=== PATIENT | female | born 1955 | race Caucasian/White ===

== ENCOUNTER 2016-06-14 16:25 | Emergency (ER) | payer OTHER ==
[~2016-06-14] VITALS: Ht 160 cm; Wt 95.8 kg
[~2016-06-14 16:25] MED LIST: ACIPHEX20 MG PO; AZOR 10/20 M1 TABLET PO; AZOR 10/40 M1 TABLET PO; AZOR 5/40 MG1 TABLET PO; Augmentin PO; CLEOCIN300 MG PO; DEMADEX20 MG PO; FENOFIBRATE160 M1 PO; FLEXERIL10 MG PO; Flexeril PO; HYDROCODON-ACE1 EAC7 PO; INVOKANA100 MG PO; JANUMET XR 50-1 EAC1 PO; LEVAQUIN250 MG PO; LEVAQUIN500 MG PO; LEVOTHYROXINE175 MCG PO; LIPITOR40 MG PO; Levothroid,Synthroid PO; MYCOSTATIN 100,60 ML PO; Mycostatin PO; PERCOCET; PERCOCET 10/1 TABLE1 PO; PERCOCET 10/1 TABLET PO; PERCOCET 5/31 TABLET PO; PROAIR HFA8.5 GM IH; PROVENTIL,200 INHALA IH; Protonix PO; SYNTHROID150 MCG PO; SYNTHROID175 MCG PO; SYNTHROID300 MCG PO; TORSEMIDE20 MG PO; TYLENOL REGULA325 MG PO; ZOFRAN4 MG PO; predniSONE PO
[2016-06-14 19:15] VITALS: BP 185/90
== END 2016-06-14 19:19 | disposition home or self-care (01) ==
LOC: EME 16:25
DX: M77.8 Other enthesopathies, not elsewhere classified (principal); G89.29 Other chronic pain; Z87.891 Personal history of nicotine dependence
CPT/HCPCS: 73110; 99281; 99284

== ENCOUNTER 2016-06-30 08:32 | Emergency (ER) | payer OTHER ==
[~2016-06-30] VITALS: Ht 157.5 cm; Wt 93.4 kg
[2016-06-30 09:18] LABS: HEMATOCRIT 44.4 % (36.0-46.0); MCH 29.7 PG (29.0-34.0); MCV 87.4 FL (83-99); MEAN PLAT.VOLUME 10.1 uM^3 (9.5-12.4); PLATELET COUNT 234 K/uL (156-360); RBC DIS.WIDTH-CV 12.9 % (11.8-14.6); RBC DIS.WIDTH-SD 40.4 % (39-53); RED BLOOD COUNT 5.08 M/uL (3.80-5.20); WHITE BLOOD COUNT 9.6 K/uL (4.1-10.2)
[2016-06-30 09:39] LABS: TROP-I INTERPRETATION NEGATIVE; TROPONIN-I 0.01 ng/mL (0.0-0.30)
[2016-06-30 09:50] LABS: ANION GAP 8 MEQ/L (2-14); CHLORIDE 104 MEQ/L (99-109); GFR ESTIMATE (CALCULATED) > 59 mL/min/; GLUCOSE 163 mg/dL (70-99); SAMPLE HEMOLYSIS CHECK 0; SAMPLE ICTERIC CHECK 0; SAMPLE LIPEMIA CHECK 0; SODIUM 139 MEQ/L (136-147); UREA NITROGEN (BUN) 9 mg/dL (9-23)
[2016-06-30] MEDS ORDERED: BYSTOLIC5 MG PO (09:50)
[2016-06-30] MEDS ORDERED: METOCLOPRAMIDE10 MG PO (09:51)
[2016-06-30] MEDS ORDERED: FARXIGA5 MG PO (09:53)
[2016-06-30] MEDS ORDERED: PROVENTIL HFA6.7 GM IH (10:17)
[2016-06-30] MEDS ORDERED: PREDNISONE20 MG PO (10:17)
[2016-06-30] MEDS ORDERED: ZITHROMAX Z-PA250 MG PO (10:17)
[2016-06-30 10:30] VITALS: BP 159/103
== END 2016-06-30 10:31 | disposition home or self-care (01) ==
LOC: EME 08:32
PROVIDERS: Emergency Medicine
DX: J20.9 Acute bronchitis, unspecified (principal); I10 Essential (primary) hypertension; M10.9 Gout, unspecified; Z87.442 Personal history of urinary calculi; K21.9 Gastro-esophageal reflux disease without esophagitis; E03.9 Hypothyroidism, unspecified; Z98.1 Arthrodesis status; Z87.891 Personal history of nicotine dependence; Z88.1 Allergy status to other antibiotic agents; Z88.2 Allergy status to sulfonamides
CPT/HCPCS: 71020; 80048; 84484; 85027; 93005; 94640; 99281; 99284; J7512

== ENCOUNTER 2016-12-20 12:39 | Emergency (ER) | payer OTHER ==
[~2016-12-20] VITALS: Ht 157.5 cm; Wt 97.6 kg
[~2016-12-20 12:39] MED LIST changes: +BYSTOLIC5 MG PO; +FARXIGA5 MG PO; +METOCLOPRAMIDE10 MG PO; +PREDNISONE20 MG PO; +PROVENTIL HFA6.7 GM IH; +ZITHROMAX Z-PA250 MG PO
[2016-12-20] MEDS ORDERED: LEVOTHYROXINE175 MCG PO (13:18)
[2016-12-20] MEDS ORDERED: OXYCODONE HCL15 MG PO (13:18)
[2016-12-20] MEDS ORDERED: ATORVASTATIN CA40 MG PO (13:19)
[2016-12-20] MEDS ORDERED: BYSTOLIC5 MG PO (13:20)
[2016-12-20] MEDS ORDERED: JANUMET 50/51 TABLET PO (13:21)
[2016-12-20 14:41] LABS: HEMATOCRIT 43.3 % (36.0-46.0); MCH 30.6 PG (29.0-34.0); MCHC 33.9 G/DL (30.0-36.0); MCV 90.2 FL (83-99); PLATELET COUNT 254 K/uL (156-360); RBC DIS.WIDTH-CV 12.6 % (11.8-14.6); RBC DIS.WIDTH-SD 41.7 % (39-53); WHITE BLOOD COUNT 9.7 K/uL (4.1-10.2)
[2016-12-20 14:53] LABS: CHLORIDE 107 mEq/L (99-109); POTASSIUM 4.8 mEq/L (3.7-5.4); SODIUM 143 mEq/L (136-147)
[2016-12-20 14:54] LABS: GLUCOSE 158 mg/dL (70-99)
[2016-12-20 14:56] LABS: ANION GAP 8 MEQ/L (2-14)
[2016-12-20 14:58] LABS: GFR ESTIMATE (CALCULATED) > 59 mL/min/
[2016-12-20 14:59] LABS: UREA NITROGEN (BUN) 14 mg/dL (9-23)
[2016-12-20 15:01] LABS: TROP-I INTERPRETATION NEGATIVE; TROPONIN-I < 0.01 ng/mL (0.0-0.30)
[2016-12-20] MEDS ORDERED: ANTIVERT25 MG PO (18:17)
[2016-12-20 18:40] VITALS: BP 230/99
== END 2016-12-20 19:09 | disposition home or self-care (01) ==
LOC: EME 12:39
PROVIDERS: Physician Assistant
DX: R42 Dizziness and giddiness (principal); I10 Essential (primary) hypertension; Z88.2 Allergy status to sulfonamides; Z88.1 Allergy status to other antibiotic agents
CPT/HCPCS: 70450; 70486; 80048; 84484; 85027; 93005; 99281; 99285; J7030

== ENCOUNTER 2016-12-28 11:28 | Emergency (ER) | payer OTHER ==
[~2016-12-28] VITALS: Ht 157.5 cm; Wt 96.6 kg
[~2016-12-28 11:28] MED LIST changes: +ANTIVERT25 MG PO; +ATORVASTATIN CA40 MG PO; +JANUMET 50/51 TABLET PO; +OXYCODONE HCL15 MG PO
[2016-12-28] MEDS ORDERED: UNITHROID175 MCG PO (12:06)
[2016-12-28 14:45] LABS: HEMATOCRIT 46.5 % (36.0-46.0); MCH 30.1 PG (29.0-34.0); MCHC 34.6 G/DL (30.0-36.0); MCV 87.1 FL (83-99); MEAN PLAT.VOLUME 10.3 uM^3 (9.5-12.4); PLATELET COUNT 284 K/uL (156-360); RBC DIS.WIDTH-CV 12.4 % (11.8-14.6); RBC DIS.WIDTH-SD 39.4 % (39-53); RED BLOOD COUNT 5.34 M/uL (3.80-5.20); WHITE BLOOD COUNT 11.8 K/uL (4.1-10.2)
[2016-12-28 15:01] LABS: CHLORIDE 106 mEq/L (99-109); POTASSIUM 4.3 mEq/L (3.7-5.4); SODIUM 140 mEq/L (136-147)
[2016-12-28 15:02] LABS: GLUCOSE 131 mg/dL (70-99)
[2016-12-28 15:04] LABS: ANION GAP 11 MEQ/L (2-14)
[2016-12-28 15:06] LABS: GFR ESTIMATE (CALCULATED) > 59 mL/min/
[2016-12-28 15:07] LABS: UREA NITROGEN (BUN) 11 mg/dL (9-23)
[2016-12-28] MEDS ORDERED: PEN-VEE K,VEET500 MG PO (16:32)
[2016-12-28] MEDS ORDERED: [UNRECOGNIZED DRUG - OTHER] PO (16:32)
[2016-12-28] MEDS ORDERED: LISINOPRIL-HCT1 EAC3 PO (16:32)
[2016-12-28] MEDS ORDERED: COREG6.25 M1 PO (16:32)
[2016-12-28 16:58] VITALS: BP 188/109
== END 2016-12-28 17:01 | disposition home or self-care (01) ==
LOC: EME 11:28
PROVIDERS: Nurse Practitioner Family
DX: I10 Essential (primary) hypertension (principal); R42 Dizziness and giddiness; K04.7 Periapical abscess without sinus; K21.9 Gastro-esophageal reflux disease without esophagitis; E03.9 Hypothyroidism, unspecified; Z87.891 Personal history of nicotine dependence; Z87.442 Personal history of urinary calculi
CPT/HCPCS: 80048; 85027; 99281; 99284; J1885; J7030

== ENCOUNTER 2017-05-02 19:42 | Emergency (ER) | payer OTHER ==
[~2017-05-02] VITALS: Ht 157.5 cm; Wt 97.7 kg
[~2017-05-02 19:42] MED LIST changes: +COREG6.25 M1 PO; +LISINOPRIL-HCT1 EAC3 PO; +PEN-VEE K,VEET500 MG PO; +UNITHROID175 MCG PO; +[UNRECOGNIZED DRUG - OTHER] PO
[2017-05-02 21:11] LABS: HEMATOCRIT 43.3 % (36.0-46.0); MCHC 35.6 G/DL (30.0-36.0); MCV 87.3 FL (83-99); MEAN PLAT.VOLUME 10.2 uM^3 (9.5-12.4); PLATELET COUNT 288 K/uL (156-360); RBC DIS.WIDTH-CV 12.2 % (11.8-14.6); RBC DIS.WIDTH-SD 38.9 % (39-53); RED BLOOD COUNT 4.96 M/uL (3.80-5.20); WHITE BLOOD COUNT 12.3 K/uL (4.1-10.2)
[2017-05-02 21:21] LABS: CHLORIDE 107 mEq/L (99-109); POTASSIUM 4.1 mEq/L (3.7-5.4); SODIUM 142 mEq/L (136-147)
[2017-05-02 21:24] LABS: GLUCOSE 170 mg/dL (70-99)
[2017-05-02 21:25] LABS: ANION GAP 11 MEQ/L (2-14)
[2017-05-02 21:26] LABS: TOTAL BILIRUBIN 0.6 mg/dL (0.0-1.0)
[2017-05-02 21:27] LABS: ALKALINE PHOSPHATASE 132 IU/L (3-129); GFR ESTIMATE (CALCULATED) > 59 mL/min/
[2017-05-02 21:28] LABS: UREA NITROGEN (BUN) 14 mg/dL (9-23)
[2017-05-02 21:36] LABS: ADD MIUA? YES; BILIRUBIN NEGATIVE; BLOOD SMALL; COLOR YELLOW ((YELLOW)); GLUCOSE (STRIP) NEGATIVE; KETONES NEGATIVE; LEUKOCYTES TRACE; NITRITE NEGATIVE; PROTEIN (STRIP) NEGATIVE; SPECIFIC GRAVITY 1.014 (1.000-1.030); UROBILINOGEN 0.2 MG/DL (0.2-1.0)
[2017-05-02 21:42] LABS: BACTERIA NONE SEEN /HPF; EPITHELIAL CELLS 1+ /HPF; MUCUS NONE SEEN /LPF; RED BLOOD CELLS 0-5 /HPF (0-5); UCUL ADDED? NO; WHITE BLOOD CELLS 0-5 /HPF (0-5)
[2017-05-02] MEDS ORDERED: PERCOCET 5/31 TABLET PO (22:41)
[2017-05-02 23:08] VITALS: BP 205/71
== END 2017-05-02 23:03 | disposition home or self-care (01) ==
LOC: EME 19:42
PROVIDERS: Physician Assistant
DX: R10.31 Right lower quadrant pain (principal); M54.9 Dorsalgia, unspecified; Z87.442 Personal history of urinary calculi; R91.1 Solitary pulmonary nodule; N28.1 Cyst of kidney, acquired; I25.10 Atherosclerotic heart disease of native coronary artery without angina pectoris; Z90.49 Acquired absence of other specified parts of digestive tract; Z90.711 Acquired absence of uterus with remaining cervical stump; I10 Essential (primary) hypertension; E03.9 Hypothyroidism, unspecified; Z79.84 Long term (current) use of oral hypoglycemic drugs; Z87.891 Personal history of nicotine dependence
CPT/HCPCS: 74176; 80053; 81003; 85027; 99281; 99284

== ENCOUNTER 2017-07-31 20:07 | Emergency (ER) | payer OTHER ==
[~2017-07-31] VITALS: Ht 157.5 cm; Wt 95.4 kg
[2017-07-31 21:16] LABS: HEMATOCRIT 44.3 % (36.0-46.0); HEMOGLOBIN 15.2 G/DL (11.9-15.5); MCH 30.6 PG (29.0-34.0); MCHC 34.3 G/DL (30.0-36.0); MCV 89.1 FL (83-99); PLATELET COUNT 276 K/uL (156-360); RBC DIS.WIDTH-CV 12.4 % (11.8-14.6); RBC DIS.WIDTH-SD 40.6 % (39-53); RED BLOOD COUNT 4.97 M/uL (3.80-5.20); WHITE BLOOD COUNT 6.7 K/uL (4.1-10.2)
[2017-07-31 21:34] LABS: CHLORIDE 109 mEq/L (99-109); POTASSIUM 4.2 mEq/L (3.7-5.4); SODIUM 142 mEq/L (136-147)
[2017-07-31 21:35] LABS: GLUCOSE 169 mg/dL (70-99)
[2017-07-31 21:39] LABS: CREATININE 0.9 mg/dL (0.6-1.3); GFR ESTIMATE (CALCULATED) > 59 mL/min/
[2017-07-31 21:40] LABS: UREA NITROGEN (BUN) 13 mg/dL (9-23)
[2017-07-31 23:14] LABS: APPEARANCE CLEAR ((CLEAR)); BILIRUBIN NEGATIVE; BLOOD SMALL; COLOR YELLOW ((YELLOW)); GLUCOSE (STRIP) NEGATIVE; KETONES NEGATIVE; LEUKOCYTES TRACE; NITRITE NEGATIVE; PROTEIN (STRIP) NEGATIVE; SPECIFIC GRAVITY 1.019 (1.000-1.030); UROBILINOGEN 0.2 MG/DL (0.2-1.0)
[2017-07-31 23:29] LABS: BACTERIA NONE SEEN /HPF; EPITHELIAL CELLS 1+ /HPF; MUCUS NONE SEEN /LPF; RED BLOOD CELLS 0-5 /HPF (0-5); UCUL ADDED? NO; WHITE BLOOD CELLS 0-5 /HPF (0-5)
[2017-08-01] MEDS ORDERED: TESSALON PERLE100 MG PO (00:29)
[2017-08-01] MEDS ORDERED: TAMIFLU75 MG PO (00:29)
[2017-08-01] MEDS ORDERED: PREDNISONE20 MG PO (00:29)
[2017-08-01] MEDS ORDERED: VENTOLIN HFA18 GM IH (00:30)
[2017-08-01 00:49] VITALS: BP 215/87
== END 2017-08-01 00:49 | disposition home or self-care (01) ==
LOC: EME 20:07
PROVIDERS: Physician Assistant
DX: J10.1 Influenza due to other identified influenza virus with other respiratory manifestations (principal); I10 Essential (primary) hypertension; E66.01 Morbid (severe) obesity due to excess calories; Z68.38 Body mass index [BMI] 38.0-38.9, adult; Z53.29 Procedure and treatment not carried out because of patient's decision for other reasons; Z87.891 Personal history of nicotine dependence; E03.9 Hypothyroidism, unspecified; Z87.442 Personal history of urinary calculi; K21.9 Gastro-esophageal reflux disease without esophagitis; Z88.2 Allergy status to sulfonamides
CPT/HCPCS: 71046; 80048; 81003; 85027; 87502; 99281; 99284; J7512

== ENCOUNTER 2017-10-06 13:35 | Emergency (ER) | payer OTHER ==
[~2017-10-06] VITALS: Ht 157.5 cm; Wt 94.3 kg
[~2017-10-06 13:35] MED LIST changes: +TAMIFLU75 MG PO; +TESSALON PERLE100 MG PO; +VENTOLIN HFA18 GM IH
[2017-10-06 14:26] LABS: HEMATOCRIT 42.2 % (36.0-46.0); HEMOGLOBIN 14.9 G/DL (11.9-15.5); MCH 30.7 PG (29.0-34.0); MCHC 35.3 G/DL (30.0-36.0); MCV 86.8 FL (83-99); PLATELET COUNT 278 K/uL (156-360); RBC DIS.WIDTH-CV 12.2 % (11.8-14.6); RBC DIS.WIDTH-SD 38.6 % (39-53); RED BLOOD COUNT 4.86 M/uL (3.80-5.20); WHITE BLOOD COUNT 9.4 K/uL (4.1-10.2)
[2017-10-06 14:37] LABS: CHLORIDE 105 mEq/L (99-109); POTASSIUM 4.2 mEq/L (3.7-5.4); SODIUM 139 mEq/L (136-147)
[2017-10-06 14:39] LABS: GLUCOSE 221 mg/dL (70-99)
[2017-10-06 14:43] LABS: CREATININE 0.8 mg/dL (0.6-1.3); GFR ESTIMATE (CALCULATED) > 59 mL/min/
[2017-10-06 14:44] LABS: UREA NITROGEN (BUN) 13 mg/dL (9-23)
[2017-10-06 14:47] LABS: TROP-I INTERPRETATION NEGATIVE; TROPONIN-I 0.02 ng/mL (0.0-0.30)
[2017-10-06] MEDS ORDERED: NAPROSYN500 MG PO (17:36)
[2017-10-06] MEDS ORDERED: VALIUM2 MG PO (17:36)
[2017-10-06 18:09] LABS: TROP-I INTERPRETATION NEGATIVE; TROPONIN-I 0.01 ng/mL (0.0-0.30)
[2017-10-06 18:43] VITALS: BP 216/82
== END 2017-10-06 18:44 | disposition home or self-care (01) ==
LOC: EME 13:35
PROVIDERS: Nurse Practitioner Acute Care
DX: M54.2 Cervicalgia (principal); I10 Essential (primary) hypertension; M62.838 Other muscle spasm; R07.9 Chest pain, unspecified; M54.9 Dorsalgia, unspecified; K21.9 Gastro-esophageal reflux disease without esophagitis; Z87.442 Personal history of urinary calculi; Z87.891 Personal history of nicotine dependence; Z88.2 Allergy status to sulfonamides; Z98.1 Arthrodesis status; Z79.84 Long term (current) use of oral hypoglycemic drugs; Z79.891 Long term (current) use of opiate analgesic
CPT/HCPCS: 71046; 72040; 80048; 84484; 85027; 93005; 99281; 99284

== ENCOUNTER 2017-11-26 14:40 | Emergency (ER) | payer OTHER ==
[~2017-11-26] VITALS: Ht 157.5 cm; Wt 92.4 kg
[~2017-11-26 14:40] MED LIST changes: +NAPROSYN500 MG PO; +VALIUM2 MG PO
[2017-11-26 18:46] LABS: HEMATOCRIT 42.7 % (36.0-46.0); HEMOGLOBIN 14.9 G/DL (11.9-15.5); MCHC 34.9 G/DL (30.0-36.0); MCV 85.9 FL (83-99); PLATELET COUNT 290 K/uL (156-360); RBC DIS.WIDTH-CV 12.2 % (11.8-14.6); RED BLOOD COUNT 4.97 M/uL (3.80-5.20); WHITE BLOOD COUNT 13.5 K/uL (4.1-10.2)
[2017-11-26 19:05] LABS: CHLORIDE 103 MEQ/L (99-109); POTASSIUM 5.1 MEQ/L (3.7-5.4); SODIUM 141 MEQ/L (136-147)
[2017-11-26 19:11] LABS: CREATININE 0.6 MG/DL (0.6-1.3); GFR ESTIMATE (CALCULATED) > 59 mL/min/; GLUCOSE 189 mg/dL (70-99); UREA NITROGEN (BUN) 11 mg/dL (9-23)
[2017-11-26] MEDS ORDERED: KEFLEX500 MG PO (20:16)
[2017-11-26] MEDS ORDERED: NAPROSYN500 MG PO (20:16)
[2017-11-26 20:27] VITALS: BP 167/92
== END 2017-11-26 20:28 | disposition home or self-care (01) ==
LOC: EME 14:40
PROVIDERS: Physician Assistant
DX: M76.62 Achilles tendinitis, left leg (principal); E11.9 Type 2 diabetes mellitus without complications; E05.90 Thyrotoxicosis, unspecified without thyrotoxic crisis or storm; Z87.891 Personal history of nicotine dependence; Z90.49 Acquired absence of other specified parts of digestive tract; Z90.710 Acquired absence of both cervix and uterus; Z88.2 Allergy status to sulfonamides; Z88.1 Allergy status to other antibiotic agents; Z88.5 Allergy status to narcotic agent
CPT/HCPCS: 80048; 84550; 85027; 99281; 99284